=== PATIENT | male | born 1945 | race Caucasian/White ===

== ENCOUNTER 2017-05-28 15:17 | Outpatient (CLI) | payer OTHER ==
--- NOTE | 2017-05-28 16:25 | Diagnostic Imaging Report ---
CARROLL THOMAS (TORRES) - OP [facility] [id number] [facility].[address] 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 Mild medial joint space narrowing. No fracture. No dislocation. No joint effusion. No soft tissue irregularity. Impression: Mild to moderate degenerative changes. No acute osseous abnormality. Electronically signed on May 28, 2017 4:04:13 PM PANEL MACHINE OPERATOR by: Ari WHITT
== END 2017-05-28 15:20 ==
LOC: RAD 15:17
PROVIDERS: ATTEND Nurse Practitioner Family
DX: M25.562 Pain in left knee (principal)
CPT/HCPCS: 73562